=== PATIENT | female | born 1980 | race Caucasian/White ===

== ENCOUNTER → 2022-08-20 | Day surgery (SDC) | payer OTHER ==
--- NOTE | 2022-08-20 11:04 | RAD REPORT ---
EXAM DESCRIPTION: US - Guided FNA Non Breast - 08/20/2022 10:53 am CLINICAL HISTORY: E04.1 COMPARISON: No comparisons FINDINGS: Preoperative diagnosis: Right thyroid nodule. Post operative diagnosis: Same. Conscious Sedation: None Fluoroscopy time: None Contrast used: None Estimated blood loss: Minimal Specimens:4 fine-needle aspirates obtained of the right thyroid nodule. Image Guidance: Ultrasound IMPRESSION: Technically successful ultrasound-guided fine-needle aspiration of a solid right thyroid nodule.
== END ==
LOC: FNA 08:00
PROVIDERS: ATTEND Otolaryngology Pediatric Otolaryngology
PROC: 0GBH3ZX Excision of Right Thyroid Gland Lobe, Percutaneous Approach, Diagnostic (ICD-10-PCS; principal; 2022-08-20)
DX: E04.1 Nontoxic single thyroid nodule (principal)
CPT/HCPCS: 88162